=== PATIENT | male | born 2000 | race Caucasian/White ===

== ENCOUNTER 2018-02-28 00:27 | Emergency (ER) | payer OTHER ==
[~2018-02-28] VITALS: Ht 167.6 cm; Wt 100.0 kg
[~2018-02-28 00:27] MED LIST: AMOXICILLIN500 MG; AMOXICILLIN500 MG PO; NO; NO HOME MEDS
[2018-02-28 01:20] LABS: HEMATOCRIT 41.2 % (39.0-50.0); HEMOGLOBIN 13.9 g/dl (14.0-18.0); IMMATURE GRANULOCYTES 0.5 % (0.0-5.0); MEAN CELL VOLUME 84.9 fL CALC (80.0-100.0); MEAN CORPUSCULAR HGB 28.7 pG CALC (26.0-32.0); MEAN CORPUSCULAR HGB CONC 33.7 g/L CALC (32.0-36.0); NEUT# 12.32 thou/uL (1.82-7.42); RED BLOOD COUNT 4.85 mill/uL (4.70-6.10); RED CELL DISTRI WIDTH 13.2 % (11.5-15.5)
[2018-02-28 01:32] LABS: ALBUMIN 4.3 g/dL (3.2-5.0); ALKALINE PHOSPHATASE 72 u/l (38-126); AMYLASE 102 u/l (30-110); ANION GAP 17 (6-22 (CALC)); BILIRUBIN, TOTAL 0.5 mg/dL (0.0-1.4); BUN 12 mg/dL (8-21); BUN/CREATININE RATIO 14 (12-20 (CALC)); CARBON DIOXIDE 22 mmol/l (22-30); CHLORIDE 101 mmol/l (95-108); CREATININE 0.9 mg/dL (0.7-1.3); GFR > 60 ML/MIN (>=60 (CALC)); GFR FOR AFR.AMER. > 60 ML/MIN (>=60 (CALC)); LIPASE 92 u/l (23-300); SGOT/AST 34 u/l (17-59); SGPT/ALT 47 u/l (21-72); SODIUM 136 mmol/l (137-146); TOTAL PROTEIN 7.2 g/dL (6.3-8.2)
[2018-02-28 01:38] LABS: INFLUENZA A NONE DETECTED (NONE DETECT); INFLUENZA B NONE DETECTED (NONE DETECT)
[2018-02-28 02:47] LABS: URINE BILIRUBIN - DIPSTICK NEGATIVE (NEGATIVE); URINE BLOOD DIPSTICK NEGATIVE (NEGATIVE); URINE COLOR YELLOW; URINE GLUCOSE - DIPSTICK NEGATIVE (NEGATIVE); URINE KETONE NEGATIVE (NEGATIVE); URINE LEUK ESTERASE NEGATIVE (NEGATIVE); URINE NITRITE - DIPSTICK NEGATIVE (Negative); URINE PROTEIN - DIPSTICK NEGATIVE (NEG-TRACE); URINE UROBILINOGEN - DIPSTICK 0.2 E.U./dL (0.2)
[2018-02-28 03:04] LABS: URINE CLARITY CLEAR
[2018-02-28] MEDS ORDERED: AUGMENTIN875TAB PO (03:22)
[2018-02-28 03:35] VITALS: BP 108/57
== END 2018-02-28 03:37 | disposition home or self-care (01) ==
LOC: ED 00:27
PROVIDERS: Emergency Medicine
DX: J02.9 Acute pharyngitis, unspecified (principal); R11.2 Nausea with vomiting, unspecified; R50.9 Fever, unspecified; R10.9 Unspecified abdominal pain
CPT/HCPCS: S0164

== ENCOUNTER 2018-03-01 00:26 | Emergency (ER) | payer OTHER ==
[~2018-03-01] VITALS: Ht 167.6 cm; Wt 100.0 kg
[~2018-03-01 00:26] MED LIST changes: +AUGMENTIN875TAB PO
[2018-03-01 01:22] VITALS: BP 141/90
== END 2018-03-01 01:27 | disposition home or self-care (01) ==
LOC: ED 00:26
DX: J03.90 Acute tonsillitis, unspecified (principal); R50.9 Fever, unspecified

== ENCOUNTER 2018-08-16 22:32 | Emergency (ER) | payer OTHER ==
[~2018-08-16] VITALS: Ht 172.7 cm; Wt 104.5 kg
[2018-08-16 23:23] VITALS: BP 128/88
== END 2018-08-16 23:26 | disposition home or self-care (01) ==
LOC: ED 22:32
DX: R04.0 Epistaxis (principal); F17.210 Nicotine dependence, cigarettes, uncomplicated

== ENCOUNTER 2018-08-17 11:16 | Emergency (ER) | payer OTHER ==
[~2018-08-17] VITALS: Ht 172.7 cm; Wt 104.5 kg
[2018-08-17 12:01] VITALS: BP 132/84
== END 2018-08-17 12:01 | disposition home or self-care (01) ==
LOC: ED 11:16
DX: Z48.01 Encounter for change or removal of surgical wound dressing (principal); F17.290 Nicotine dependence, other tobacco product, uncomplicated

== ENCOUNTER 2019-04-18 16:17 | Emergency (ER) | payer MEDICAID ==
[~2019-04-18] VITALS: Ht 172.7 cm; Wt 106.8 kg
[2019-04-18] MEDS ORDERED: CEPHALEXIN500 M1 PO (18:22)
[2019-04-18 18:30] VITALS: BP 159/94
== END 2019-04-18 18:30 | disposition home or self-care (01) ==
LOC: ED 16:17
DX: S61.217A Laceration without foreign body of left little finger without damage to nail, initial encounter (principal); F17.290 Nicotine dependence, other tobacco product, uncomplicated; W45.8XXA Other foreign body or object entering through skin, initial encounter

== ENCOUNTER 2019-04-25 17:19 | Emergency (ER) | payer MEDICAID ==
[~2019-04-25] VITALS: Ht 172.7 cm; Wt 109.0 kg
[~2019-04-25 17:19] MED LIST changes: +CEPHALEXIN500 M1 PO
[2019-04-25 17:45] VITALS: BP 154/84
== END 2019-04-25 17:45 | disposition home or self-care (01) ==
LOC: ED 17:19
DX: S61.217D Laceration without foreign body of left little finger without damage to nail, subsequent encounter (principal); X58.XXXD Exposure to other specified factors, subsequent encounter